=== PATIENT | male | born 1990 | race Caucasian/White ===

== ENCOUNTER 2017-09-22 11:44 | Emergency (ER) | payer SELFPAY ==
[~2017-09-22] VITALS: Ht 167.6 cm; Wt 78.9 kg
[~2017-09-22 11:44] MED LIST: ARIP20TA5 PO; ARIP5TAB13 PO; ATOM25CA PO; ATOM60CA PO; CITA20TA9 PO; CITA40TA12 PO; CYCL-331 PO; HYDR-971 PO; HYDR1TAB12 PO; META-21 PO
[2017-09-22] MEDS: oxyCODONE/APAP 10/325 1 TAB TABLET PO ONE (13:15)
[2017-09-22] MEDS: CYCLOBENZAPRINE 10 MG TABLET. PO ONE (13:15)
[2017-09-22 13:29] VITALS: BP 107/71
[2017-09-22] MEDS: IBUPROFEN 600 MG TABLET. PO ONE (13:29)
--- NOTE | 2017-09-22 17:00 | ED.ADGEN ---
Past History Past Medical History: Asthma Past Surgical History: No Surgical History Alcohol Use: None Drug Use: None Adult General Chief Complaint Chief Complaint Back pain HPI HPI Patient is a 27-year-old male with history of chronic recurrent low back pain who presents with increased lower lumbar pain which started as sharp, nonradiating rate worse with movement. Pain began last evening after lifting a heavy washing machine with a friend. Patient is taking Tylenol ibuprofen with limited relief. Denies motor weakness or loss of sensation of distal extremities. No loss of bowel or bladder function. No other acute symptoms or complaint. [] Review of Systems Review of Systems Review symptoms as per history of present illness. All other review symptoms are negative. All other systems were reviewed and found to be within normal limits, except as documented in this note. Current Medications Current Medications Current Medications Medications (Trade) Dose Ordered Sig/Anastasia Start Time Stop Time Status Last Admin Dose Admin Cyclobenzaprine HCl (Flexeril) 10 mg 1X ONCE 09/22/17 13:15 09/22/17 13:16 DC 09/22/17 13:15 10 MG Ibuprofen (Motrin) 600 mg 1X ONCE 09/22/17 13:30 09/22/17 13:31 DC 09/22/17 13:29 600 MG Oxycodone/ Acetaminophen (Percocet 10/325) 1 tab 1X ONCE 09/22/17 13:15 09/22/17 13:16 DC 09/22/17 13:15 1 TAB Allergies Allergies Allergies Coded Allergies Type Severity Reaction Last Updated Verified Sulfa (Sulfonamide Antibiotics) Allergy Intermediate 04/05/15 Yes ketorolac Allergy Intermediate 04/05/15 Yes tramadol Allergy Intermediate 04/05/15 Yes Physical Exam Physical Exam Constitutional: Well developed, discomfort secondary to pain[] HENT: Normocephalic, atraumatic, bilateral external ears normal, oropharynx moist, nose normal. [] Eyes: PERRL, EOMI [] Neck: Normal range of motion, no tenderness. [] Cardiovascular:Heart rate regular rhythm. [] Lungs & Thorax: Bilateral breath sounds clear to auscultation [] Abdomen: Bowel sounds normal, soft, no tenderness. [] Skin: Warm, dry, no erythema, no rash. [] Back: he is lower lumbar pain, no bruising swelling midline step-off.. [] Extremities: No tenderness, no cyanosis, no clubbing, ROM intact, no edema. [] Neurologic: Alert and oriented X 3, lower extremities, no motor weakness or loss of sensation, reflexes 2+ and symmetric. [] Psychologic: Affect normal, judgement normal, mood normal. [] Current Patient Data Vital Signs Vital Signs Date Time Temp Pulse Resp B/P (MAP) Pulse Ox O2 Delivery O2 Flow Rate FiO2 09/22/17 13:29 81 18 107/71 (83) 99 Room Air 09/22/17 11:59 98.2 EKG EKG [] Radiology/Procedures Radiology/Procedures [] Course & Med Decision Making Course & Med Decision Making Pertinent Labs and Imaging studies reviewed. (See chart for details) [Reproducible low cack pain without neurologic compromise. Symptoms improved with treatment. Recommend continued supportive care and PCP follow-up as needed. ] Final Impression Final Impression [1Acute lumbar back pain] Problems: Dragon Disclaimer Dragon Disclaimer This electronic medical record was generated, in whole or in part, using a voice recognition dictation system. SANDRA WISEMAN DO Sep 22, 2017 17:00
== END 2017-09-22 13:31 | disposition home or self-care (01) ==
LOC: ER 11:44
DX: M54.5 Low back pain (principal); G89.29 Other chronic pain; J45.909 Unspecified asthma, uncomplicated; Z88.2 Allergy status to sulfonamides; Z88.6 Allergy status to analgesic agent; Z88.8 Allergy status to other drugs, medicaments and biological substances
CPT/HCPCS: 99284